=== PATIENT | female | born 1985 | race Caucasian/White ===

== ENCOUNTER 2017-02-21 17:05 | Emergency (ER) | payer OTHER, MEDICARE ==
[~2017-02-21] VITALS: Ht 154.9 cm; Wt 44.5 kg
[~2017-02-21 17:05] MED LIST: DOCU-41 PO; HYDR-4003 PO; IBUP-1827 PO
[2017-02-21 17:06] VITALS: BP 114/75; PULSE 95; RESP 16; O2SAT 100
[2017-02-21 17:51] LABS: BASOPHILS % (AUTO) 0.4 % (0-3); EOSINOPHILS % (AUTO) 1.3 % (0-5); MONOCYTES % (AUTO) 10.2 % (4-12); Mean Corpuscular Hemoglobin 30.9 pg (27.0-35.0); Mean Corpuscular Volume 91.4 fL (81-100); NEUTROPHILS % (AUTO) 59.8 % (40-74); Platelet Count 319 bil/L (150-400)
[2017-02-21 18:12] LABS: Magnesium 2.1 mg/dL (1.6-2.6)
--- NOTE | 2017-02-21 18:16 | ED.REPORT ---
HPI-Abd Pain F Under 40 Date of Service Feb 21, 2017 ED Provider: Rishabh Sánchez DO Pt is a 31 year old female with a hx of MS presenting to the ED complaining of 7 /10 right sided abdominal pain gradual onset today at rest. Associated symptoms include decreased appetite for the past month, 10-15 lb weight loss, constipation, low grade fever, lightheadedness, and pain with inspiration. She denies any nausea, vomiting, diarrhea, rash, vaginal discharge, dysuria, urinary frequency, decreased urination, or chills. The pain is exacerbated by palpation, and feels like a dull ache. She has been taking Tecfidera for her MS for the past year. Nursing Notes Stated Complaint: ABDOMEN PAIN-SENT BY Chief Complaint: Female Abdominal Pain Nursing Notes Reviewed: Yes Allergies: Coded Allergies: No Known Allergies (Unverified , 02/21/17) Scheduled Docusate Sodium (Colace) 100 Mg Capsule 100 MG PO DAILY Scheduled PRN Hydrocodone-Acetaminophen 5-325 mg (Hydrocodone-Acetaminophen 5-325 mg) 1 Each Tablet 1-2 TABLET PO Q8H PRN PRN For Moderate Pain Ibuprofen (Ibuprofen) 600 Mg Tablet 600 MG PO Q6H PRN PRN For Mild Pain General Time Seen by MD: 18:13 Chief Complaint Abdominal pain Hx Obtained From: Patient Arrived By: Walk-in Sudden in Onset?: Yes Onset Occurred: 5 - 8 hours ago Symptom Duration: Since onset Progression since Onset: Gradually worsening Location: : Diffuse Quality: Painful Severity: Current: Pain level 7 out of 10 Severity: Maximum: Pain level 9 out of 10 Recent Healthcare: No recent doctor visit, No recent hospitalization Similar Sx Previous: No Past Medical History Past Medical History Notes: OB: Dr. Luanne Sampson Past Medical History UTI MS Past Surgical History denies any hx of surgery Smoking History Current Every Day Smoker Social History Alcohol Use: "Social" Other Social History: Local resident Ambulatory Status Independent Review of Systems Review of Systems Note: Reports decreased appetite and pain with inspiration Constitutional: Reports: Fever, Denies: Chills GI: Reports: Abdominal pain, Constipation, Denies: Diarrhea, Nausea, Vomiting Female: Denies: Dysuria, Urinary frequency, Urination decreased, Vaginal discharge Complete sys rev & neg: except as marked. Endocrine: Reports: Weight loss Skin: Denies Rash Neurologic: Reports: Lightheaded Physical Exam Initial Vital Signs Vital Signs (First) Date Time Temp Pulse Resp B/P Pulse Ox O2 Delivery O2 Flow Rate FiO2 02/21/17 17:06 36.4 95 16 114/75 100 Room Air Initial VS: Reviewed Head / Eyes: Atraumatic, Normocephalic, PERRL Extremities: Vascular intact, Neuro intact, No swelling, No tenderness Skin: Warm, Dry, No cyanosis Neurologic: Alert, Oriented, Nonfocal Psychiatric: Mood/affect normal, Behavior normal, Normal thought content General/Constitutional: Awake, Alert, No acute distress, Well appearing Respiratory / Chest: Breath sounds NL, Breath sounds = bilat, No respiratory distress, No rales, No rhonchi, No wheezing Cardiovascular: Heart rate NL, Regular rhythm, No murmurs Abdomen: No guarding, No rebound, BS normoactive Tenderness/Guarding/Rebound: Positive: Loya's sign positive, Tender RUQ... ( Mild), Tender epigastric (Mild) Back: Atraumatic, Inspection NL, No CVA tenderness ENT: Atraumatic, Airway patent, Mucous membranes moist, Pharynx NL Serous effusion behind right TM Interpretation & Diagnostics Interpretation & Diagnostics: US ABDOMEN: IMPRESSION: No sonographic explanation for right upper quadrant abdominal pain. Dictated by: Jayme Ferreira M.D. on 02/21/2017 at 19:40 Lab Results Interpretation Result Diagram: 02/21/17 1738 02/21/17 1738 Test 02/21/17 17:38 02/21/17 19:33 White Blood Count 7.9th/mm3 (3.8-10.1) Red Blood Count 4.79mil/mm3 (3.90-5.20) Hemoglobin 14.8g/dL (12.0-15.6) Hematocrit 43.8% (35.0-46.0) Mean Corpuscular Volume 91.4fL (81-100) Mean Corpuscular Hemoglobin 30.9pg (27.0-35.0) Mean Corpuscular Hemoglobin Concent 33.8% (32.0-37.0) Red Cell Distribution Width 13.2% (12.3-15.4) Platelet Count 319bil/L (150-400) Neutrophils (%) (Auto) 59.8% (40-74) Lymphocytes (%) (Auto) 28.0% (14-46) Monocytes (%) (Auto) 10.2% (4-12) Eosinophils (%) (Auto) 1.3% (0-5) Basophils (%) (Auto) 0.4% (0-3) Sodium Level 140mEq/L (134-144) Potassium Level 3.6mEq/L (3.5-5.2) Chloride Level 100mEq/L (97-108) Carbon Dioxide Level 25mmol/L (18-29) Blood Urea Nitrogen 8mg/dL (6-20) Creatinine 0.48mg/dL (0.57-1.00) Estimat Glomerular Filtration Rate 219mL/min (>59) Glucose Level 114mg/dL (60-99) Calcium Level 9.4mg/dL (8.5-10.1) Magnesium Level 2.1mg/dL (1.6-2.6) Total Bilirubin 0.2mg/dL (0.0-1.2) Aspartate Amino Transf (AST/SGOT) 17U/L (0-50) Alanine Aminotransferase (ALT/SGPT) 22U/L (0-32) Alkaline Phosphatase 39U/L (25-150) Total Protein 7.3g/dL (6.4-8.4) Albumin 4.8g/dL (3.4-5.0) Lipase 21U/L (13-60) Urine Color Yellow (YELLOW) Urine Appearance Clear (CLEAR,HAZY) Urine pH 6.0 (5.0-8.0) Urine Specific [place] 1.010 (1.003-1.035) Urine Protein Negativemg/dL (NEG,TRACE) Urine Glucose (UA) Negativemg/dL (NEGATIVE) Urine Ketones 15mg/dL (NEGATIVE) Urine Occult Blood Negative (NEGATIVE) Urine Nitrite Negative (NEGATIVE) Urine Bilirubin Negative (NEGATIVE) Urine Urobilinogen Normalmg/dL (NORMAL) Urine Leukocyte Esterase Small (NEGATIVE) Urine RBC 0-2/hpf (0-2) Urine WBC 6-10/hpf (0-5) Urine Epithelial Cells Moderate/hpf (NONE-MOD) Urine Crystals None seen (NONE SEEN) Urine Bacteria Few/hpf (NONE-FEW) Urine Hyaline Casts None/lpf (NONE) Urine Granular Casts None seen (NONE SEEN) Urine Waxy Casts None seen (NONE SEEN) Urine Red Blood Cell Casts None seen (NONE SEEN) Urine White Blood Cell Casts None seen (NONE SEEN) Urine Mucus Present (None Seen) Urine Trichomonas None seen (NONE SEEN) Urine Yeast None (NONE SEEN) Urinalysis Comment None Urine Culture Reflexed Indicated Chlamydia trachomatis DNA (PRIMITIVO) Negative (Negative) Neisseria gonorrhoeae DNA (PRIMITIVO) Negative (Negative) Re-Eval/Medical Decision Med Decision/Clinical Course 31 yo WF with h/o MS presents with RUQ/epigastric pain that begun earlier today. Labs are normal. RUQ US is unremarkable. Dr. Phillips does not believe that tecfidera would cause these symptom (although 18% of people taking ti may develop abdominal pain) especially since she has been taking it for 1 year without problems previously. Considered, cholecystitis, med rxn, hanna-parvez- taiwo syndrome, pancreatitis, gastritis/PUD, and appendicis. VS normal and no leukocytosis. Lipase normal. Pain improved somewhat after gi coctail and PPI. GC/Chlamydia pending. UA has pyuria but pt has no sx of UTI, will wait for cx. Plan to treat with PPI and sucralfate and arrange for GI f/u as pt has no PCP at this time. Recommended PCP to pt. Re-Evaluation/Progress #1: Time of Eval: 19:21 Patient Status: Condition improved Re-Evaluation/Progress Note: Discussed ultrasound results and plan for consultation with her neurologist Dr. Walker's office. Re-Evaluation/Progress #2: Time of Eval: 19:54 Patient Status: Condition improved Re-Evaluation/Progress Note: Discussed consultation with Dr. Phillips and plan for discharge. Pt states that her pain is currently about a 5 or 6. Pt denies any urinary symptoms. Re-Evaluation/Progress #3: Time of Eval: 20:47 Patient Status: Condition improved Re-Evaluation/Progress Note: Pt feeling better after GI cocktail. Consultation : Consulted With: Neurology Call Returned at: 19:45 Note: Dr. Phillips doesn't think that the pain is being caused by the Tecfidera medication, and she should stay on it. Refer to GI outpatient consult. Counseled Regarding: Diagnosis, Lab results, Need for follow-up, When/why to return to ED Discharge & Departure Primary Impression: Abdominal pain Abdominal location: upper abdomen, unspecified Qualified Code: R10.10 - Upper abdominal pain, unspecified Ruled Out: Cholecystitis, Pancreatitis Disposition: Home Discharge Condition All VS Reviewed: Yes Condition: Improved Patient Instructions: Abdominal Pain (ED) Additional Instructions: Thank you for entrusting us with your care. No dangerous cause for your abdominal pain was identified and your labs and ultrasound looked normal. Follow up with gastroenterology for further studies. If your urinalysis returns abnormal or the STD testing that we performed returns abnormal we will contact you. I am not treating her with an antibiotic for UTI because you have no symptoms of that. I believe most severe symptoms could be related to stomach inflammation (gastritis) or ulcer. Please take the omeprazole and sucralfate as prescribed to help with stomach discomfort. We consult with your neurologist office and they do not feel that your multiple sclerosis medication could cause your symptoms. You should continue this medication. Return to the ER if you develop any new or worsening symptoms. Referrals: NOPCP (PCP) Ana Paula Walker MD Attestation Portions of this note were transcribed by Leana Pressley. I, Dr. Sánchez personally performed the history, physical exam and medical decision-making; I reviewed and confirmed the accuracy of the information in the transcribed note. Signed by: Alex Deras, 02/21/2017. copies to: Ana Paula Walker MD, Gary R DO Feb 21, 2017 18:16 LEANA PRESSLEY Feb 21, 2017 18:45
--- NOTE | 2017-02-21 19:43 | DRSVH ---
PROCEDURE: US ABDOMEN, LIMITED ([id number]) INDICATIONS: 31 year-old female with right upper quadrant and epigastric abdominal pain with anorexia . TECHNIQUE: Real-time focused scanning was performed of the abdomen, with image documentation. COMPARISON: None. FINDINGS: Liver is normal in size and echotexture. No gallstones or biliary sludge. Gallbladder wall thickness is normal. No pericholecystic fluid. No intra-or extrahepatic biliary ductal dilation. Panc reas is sonographically normal. IMPRESSION: No sonographic explanation for right upper quadrant abdominal pain. Dictated by: Jayme Ferreira M.D. on 02/21/2017 at 19:40 Approved by: Jayme Ferreira M.D. on 02/21/2017 at 19:42
[2017-02-21 19:54] LABS: APPEARANCE,URINE CLEAR (CLEAR,HAZY); COLOR,URINE YELLOW (YELLOW); OCCULT BLOOD,URINE NEGATIVE (NEGATIVE); UROBILINOGEN,URINE NORMAL (NORMAL)
[2017-02-21] MEDS ORDERED: Pantoprazole 40 mg ER24 Tablet PO ONE (20:00)
[2017-02-21] MEDS ORDERED: LidocaineVisc 2%:Antacid 1:1 10 mL Syringe PO ONE (20:00)
== END 2017-02-21 21:43 | disposition home or self-care (01) ==
LOC: SED 17:05
DX: R10.11 Right upper quadrant pain (principal); R10.13 Epigastric pain; R50.9 Fever, unspecified; R42 Dizziness and giddiness; G35 Multiple sclerosis; F17.200 Nicotine dependence, unspecified, uncomplicated; Z87.440 Personal history of urinary (tract) infections